=== PATIENT | female | born 1940 | race Caucasian/White ===

== ENCOUNTER 2019-01-29 13:02 | Inpatient (IN) | payer OTHER ==
[~2019-01-29] VITALS: Ht 172.7 cm; Wt 72.2 kg
--- NOTE | ~2019-01-29 | HC ---
[facility] [place] [address] CONSULTATION Name: KAYLIE COLEMAN KYLER Room #: 429-P [facility] IN M.R.#: [id number] Admission: 01/29/19 ������������������ Attend Phys: Maco Rush MD, FAAF Discharge: ������������������ Date of : 42 Report #: [id number] THIS REPORT FOR: //name// CC: Maco Rush DATE OF SERVICE: 02/01/2019 HISTORY OF PRESENT ILLNESS: The patient is a 78-year-old white female who has a history of Parkinson's disease, was a premorbid 4-wheeled walker ambulator and was noted to have abandoned her drugs secondary to side effects. Unfortunately, her function has significantly declined. She further worsened and came to the point where she was sitting in a chair and could not move. She has had increased weakness. She was having several falls beforehand. She was admitted to [facility]. She was seen by Neurology and she is now open to trying medication as she realized her function was markedly declining without. She has been started on low-dose Sinemet with a gradual increase and also has been placed on oxybutynin. We are seeing her in Rehabilitation Medicine consultation. PAST MEDICAL HISTORY: Includes diabetes mellitus type 2, ovarian cyst excision, hypertension, hypothyroid disease, right cataract surgery, gout. ALLERGIES: TO MORPHINE. MEDICATIONS: Please see the full medication listing. This includes vitamins, herbals, and supplements. SOCIAL HISTORY: Lives with her , was utilizing a 4-wheeled walker short distances 2-story house, 1 step to get in. helped with dressing, brief and shoes. FAMILY HISTORY: Noncontributory. REVIEW OF SYSTEMS: Did not offer any current complaints of chest pain, shortness of breath, abdominal discomfort. Denies problems with swallowing. No problems with focal extremity discomfort. No problems with bowel or bladder. She has the history of the recent falls. She notes some frustration with the situation. PHYSICAL EXAMINATION: GENERAL: She is a 78-year-old white female, in no obvious distress. The patient is alert. VITAL SIGNS: Last recorded temperature 97.6, pulse 61, respirations 19, blood pressure 162/70. HEENT: Appeared to be benign. She does have some evidence of masked facies. EXTREMITIES: Upper extremity, she does have a resting pill rolling tremor. [address] [address] CONSULTATION Name: KAYLIE COLEMAN KYLER Room #: [facility] IN .R.#: [id number] Admission: 01/29/19 ������������������ Attend Phys: Maco Rush MD, FAAF Discharge: ������������������ Date of : 42 Report #: [id number] There is evidence of some cogwheeling, elbows and wrists. She has evidence of some rigidity and bradykinesia. Lower extremities also reveal some bradykinesia. Upper body movement reveals decreased strength, probably a grade 3+/5, lower extremities 3+, maybe 4-. Transfers, supine to sit were max assist of 2. Moves very slowly. ASSESSMENT: A 78-year-old white female with the following problem list: 1. Parkinson's disease. 2. Significant decline in functional mobility and activities of daily living. 3. Frequent falls prior to even further significant decline. 4. Difficulty tolerating some of her Parkinson's medications. 5. Diabetes mellitus, type 2. 6. Electrolyte abnormalities. PLAN: The patient is a candidate for an acute in-hospital inpatient rehabilitation stay. Goal would be to further improve her functional mobility and ADL independence. We would have Neurology continue to follow regarding medication management while she is on the rehab monreal as well as her attending physician. Discussion with the patient's and son regarding rehabilitation issues. The patient is a candidate for an acute 5-North inpatient rehabilitation stay when medically cleared and a bed available. ��������������������������������������������� ���������������������������������������� By: ��������������������������������������������� 1257 0046 Feroz Dee MD /PMT
[~2019-01-29 13:02] MED LIST: ALLOPURINOL 30300 M2 PO; CATAPRES0.1 MG PO; DIABETA 5MG TABL5 MG; HAIR SKIN NAIL1 EACH PO; LEVOTHYROXINE0.05 MG PO; MAXZIDE-25 MG1 EACH PO; METFORMIN HCL500 MG PO; NORVASC10 MG PO
[2019-01-29 13:03] VITALS: BP 167/86
[2019-01-29 13:28] LABS: URINE BILIRUBIN NEGATIVE (Negative); URINE BLOOD 2+ (Negative); URINE CLARITY CLEAR; URINE COLOR YELLOW; URINE GLUCOSE-RANDOM* NEGATIVE (Negative); URINE KETONES 2+ (Negative); URINE LEUKOCYTES-REFLEX NEGATIVE (Negative); URINE NITRITE-REFLEX NEGATIVE (Negative); URINE PROTEIN (DIPSTICK) 2+ (Negative); URINE SPECIFIC GRAVITY >= 1.030 (1.005-1.035); URINE UROBILINOGEN 0.2 E.U./dl (0.2-1.0)
[2019-01-29 13:37] LABS: CRYSTALS None Seen /LPF (None Seen); MUCUS >6 Heavy strn/LPF (None Seen); SQUAMOUS 0-3 Few /LPF (0-3); URINE RBC 3-10 Few /HPF (0-2); URINE WBC-REFLEX 0-5 Rare /HPF (0-5)
[2019-01-29 13:38] LABS: BACTERIA-REFLEX None Seen /HPF (None Seen); HYALINE CASTS 0-3 Few /LPF (None Seen)
[2019-01-29 13:45] LABS: ABSOLUTE NEUTROPHILS 4.8 thou/uL (1.4-8.2); BASOPHILS 0.4 % (0.0-2.0); HEMATOCRIT 37.9 % (37.0-47.0); HEMOGLOBIN 12.6 gm/dL (12.0-15.0); LYMPHOCYTES 11.1 % (24.0-44.0); MCH 28.5 pg (26.0-34.0); MCHC 33.3 g/dL (28.0-37.0); MCV 85.6 fL (80.0-100.0); MONOCYTES 6.8 % (1.0-8.0); PLATELET COUNT 172 thou/uL (150-400); POLYS 81.7 % (36.0-66.0); RBC 4.42 mil/uL (4.20-5.00); RDW 13.3 % (10.5-14.5); WBC 5.8 thou/uL (4.0-11.0)
[2019-01-29 13:58] LABS: ANION GAP 9 mmol/L (7-16); BUN 17 mg/dL (7-18); CALCIUM 9.6 mg/dL (8.5-10.1); CHLORIDE 99 mmol/L (98-107); CO2 28 mmol/L (21-32); GLUCOSE 142 mg/dL (74-106); POTASSIUM 3.2 mmol/L (3.5-5.1); SODIUM 136 mmol/L (136-145)
[2019-01-29 14:07] LABS: ALBUMIN 3.5 g/dL (3.4-5.0); SGOT 20 U/L (15-37); SGPT 14 U/L (30-65); TOTAL BILIRUBIN 0.5 mg/dL (<0.1-1.0); TROPONIN-I <0.06 ng/mL (<0.06)
[2019-01-29] MEDS ORDERED: [UNRECOGNIZED DRUG - OTHER] (14:11)
[2019-01-29] MEDS ORDERED: METFORMIN HCL850 MG PO (15:18)
[2019-01-29] MEDS ORDERED: SYNTHROID50 MCG PO (15:20)
[2019-01-29] MEDS ORDERED: OXYBUTYNIN 5 MG5 M2 PO (15:21)
[2019-01-29] MEDS ORDERED: LASIX 20 MG TAB20 MG PO (15:22)
[2019-01-29] MEDS ORDERED: PLAVIX 75 MG TA75 M1 PO (15:23)
[2019-01-29] MEDS ORDERED: LOSARTAN POTAS100 MG PO (15:23)
[2019-01-29] MEDS ORDERED: ALENDRONATE SOD70 MG PO (15:24)
[2019-01-29] MEDS ORDERED: GABAPENTIN 100100 MG PO (15:24)
[2019-01-29] MEDS ORDERED: MUPIROCIN22 GM TOP (15:26)
[2019-01-29] MEDS ORDERED: CALCIUM 500+D1 EAC2 PO (15:27)
[2019-01-29 16:53] VITALS: BP 172/75
[2019-01-29 17:25] VITALS: BP 164/69
[2019-01-29 21:03] VITALS: BP 148/59
--- NOTE | 2019-01-30 04:27 | NUR ---
PT HERE AT START OF SHIFT.ADMISSION ASSESSMENT COMPLETED.DR LEONE CALLED TO CHECK ON PT,NEW ORDER NOTED TO RESTART PT'S MED,REPLACE MG AND POTASSIUM NOTED AND CARRIED OUT.PT REPOSITIONED WHILE IN BED.BLE EDEMA NOTED.PT RESTING IN BED AT THIS TIME.CALL LIGHT WITHIN REACH.
[2019-01-30 05:22] LABS: ABSOLUTE NEUTROPHILS 2.9 thou/uL (1.4-8.2); BASOPHILS 0.5 % (0.0-2.0); EOSINOPHILS 0.2 % (0.0-3.0); HEMATOCRIT 33.2 % (37.0-47.0); HEMOGLOBIN 11.3 gm/dL (12.0-15.0); LYMPHOCYTES 25.7 % (24.0-44.0); MCH 29.1 pg (26.0-34.0); MCV 85.8 fL (80.0-100.0); MONOCYTES 9.9 % (1.0-8.0); PLATELET COUNT 156 thou/uL (150-400); POLYS 63.7 % (36.0-66.0); RBC 3.87 mil/uL (4.20-5.00); RDW 13.1 % (10.5-14.5); WBC 4.6 thou/uL (4.0-11.0)
[2019-01-30 05:41] LABS: ALBUMIN 2.9 g/dL (3.4-5.0); CALCIUM 8.8 mg/dL (8.5-10.1); CREATININE 0.9 mg/dL (0.6-1.0); MAGNESIUM 1.7 mg/dL (1.8-2.4); POTASSIUM 3.6 mmol/L (3.5-5.1); TOTAL BILIRUBIN 0.3 mg/dL (<0.1-1.0); TOTAL PROTEIN 6.7 g/dL (6.4-8.2)
[2019-01-30 05:50] VITALS: BP 174/68
--- NOTE | 2019-01-30 13:40 | NUR ---
PT USING BEDPAN THIS NURSE AND ASSIST XS1 TRIED TO GET HER TO BSC. PT DOES NOT EVEN TRY. PATIENT HAS TO BE FEED AND USE BEDPAN. WILL HAVE THERAPY WORK WITH PATIENT.
--- NOTE | 2019-01-30 15:39 | H ---
[facility] [place] [address] HISTORY AND PHYSICAL Name: COLEMANGUEROKAYLIE KYLER Room #: 429-P ADM IN M.R.#: [id number] Admission: 01/29/19 ������������������ Attend Phys: Maco Rush MD, FAAF Discharge: ������������������ Date of : 42 Report #: [id number] THIS REPORT FOR: //name// CC: Maco Rush DATE OF SERVICE: 01/29/2019 CHIEF COMPLAINT: Weakness. HISTORY OF PRESENT ILLNESS: The patient is a 78-year-old white female well known to me as I have provided her primary medical care for many years. She has type 2 diabetes, hypertension and Parkinson's disease. She is not on a Parkinson's disease drug presently having tried several and abandoning them for side effects, just taking a supplement now that is based on claudio cohen extract. Blood sugars have been well controlled at home as has her blood pressure, but this week, she has developed progressive weakness and over the last few days, has been unable to help herself up out of a chair, has fallen several times. EMS has been to the house several times this week and day of this admission transported her to the Emergency Department for evaluation of her weakness. In the Emergency Department, labs were reasonably in order with the exceptions of mild hypokalemia at 3.2 potassium and hypomagnesemia with a magnesium level of 1.6. She is admitted to the hospital with generalized weakness and a Neurology consult is requested. PAST MEDICAL HISTORY: Ovarian cyst excision, benign; type 2 diabetes; hypertension; hypothyroid disease; right cataract surgery; gout; oral surgery for full dental extractions with dentures; Parkinson's disease. MEDICATIONS: Metformin 500 mg daily, levothyroxine 50 mcg 1 p.o. daily, oxybutynin 5 mg p.o. t.i.d., Lasix 20 mg p.o. daily, losartan 100 mg p.o. daily, Plavix 75 mg p.o. daily, gabapentin 100 mg 1 p.o. t.i.d., alendronate sodium 1 tab p.o. weekly, mupirocin and calcium with D 1 p.o. daily. ALLERGIES: TO MORPHINE. SOCIAL HISTORY: She is , lives at home with her . Nonsmoker, nondrinker. FAMILY HISTORY: Noncontributory. REVIEW OF SYSTEMS: GENERAL: She has been debilitated. EYES: Some exudate, right eye lately. ENT: Denies problems with hearing, swallow, taste or smell. CARDIOVASCULAR: No chest pain or palpitations. RESPIRATORY: No difficulty breathing. [address] [address] HISTORY AND PHYSICAL Name: KAYLIE COLEMAN KYLER Room #: 429-P [facility] IN M.R.#: [id number] Admission: 01/29/19 ������������������ Attend Phys: Maco Rush MD, FAAF Discharge: ������������������ Date of : 42 Report #: [id number] GASTROINTESTINAL: No abdominal pain. GENITOURINARY: No problems urinating. MUSCULOSKELETAL: She is debilitated, has arthritis and has bipedal edema, which is chronic. DERMATOLOGIC: No disturbing lesions or rash. NEUROLOGIC: Recent falls, debility, Parkinson's disease. PSYCHIATRIC: Frustrated, not depressed. Remainder of systems review is negative. PHYSICAL EXAMINATION: VITAL SIGNS: Temperature 36.9, pulse 80, respirations 12, blood pressure 167/86, pulse ox on room air is 96%. She weighs 74.84 kilograms or 165 pounds. HEENT: She is alert, responsive. Speaks full sentences and engages in conversation. Pupils are equal, round, reactive to light and accommodation. Extraocular muscles intact. She has some yellow exudate in her right eye. Oropharynx is clear. NECK: Supple. COR: S1, S2. CHEST: Clear. ABDOMEN: Soft, nontender. EXTREMITIES: Has 1+ nonpitting edema in her ankles. NEUROLOGIC: She has a mask-like face, some psychomotor slowing. Muscle strength 4/5 upper extremities, 2/5 lower. DERMATOLOGIC: No rashes or disturbing lesions. LABORATORY EVALUATION: CBC: White count is 5.8, hemoglobin 12.6, hematocrit 37.9, platelets 172,000. She has 82% segmented neutrophils, 11% lymphocytes, 7% monocytes. Serum chemistry: Sodium 136, potassium is 3.2, chloride 99, CO2 28, anion gap is 9, BUN 17, creatinine 1.0. Estimated glomerular filtration rate is 54, glucose 142. Lactate 1.6, calcium is 9.6, magnesium 1.6, total bilirubin 0.5, AST 20, ALT 14, alkaline phosphatase 77. Creatine kinase 51. Troponin less than 0.06. Total protein is 8.0, albumin 3.5. Influenza swabs A and B were negative. Urinalysis: Clean catch sample shows a yellow clear urine, specific gravity greater than 1.030, pH is 6.0, 2+ protein, 2+ ketones, 2+ blood noted, nitrite negative, negative bilirubin, urobilinogen 0.2, negative leukocyte esterase, 3-10 red cells per high powered field, 0-5 white cells per high powered field, 0-3 squamous epithelial cells, no crystals, bacteria, 0-3 casts, a heavy urinary mucus and negative glucose. Blood cultures obtained in the Emergency Department. CT scan of the head, noncontrast done from the ER shows no acute intracranial process. ASSESSMENT: Weakness, Parkinson's disease, type 2 diabetes, hypokalemia and hypomagnesemia. [facility] [address] [place] [address] HISTORY AND PHYSICAL Name: KAYLIE COLEMAN KYLER Room #: 429-P ADM IN M.R.#: [id number] Admission: 01/29/19 ������������������ Attend Phys: Maco Rush MD, FAAF Discharge: ������������������ Date of : 42 Report #: [id number] PLAN: Admit to hospital. Correct potassium and magnesium. Follow labs serially. Neurology consult may well likely benefit from anti-parkinsonian medications. ��������������������������������������������� <ELECTRONICALLY SIGNED> ���������������������������������������� By: Maco Rush MD, JERALD, FACEP ��������������������������������������������� 01/30/19 1539 1947 15 Maco Rush MD, JERALD, FACEP /nt
--- NOTE | 2019-01-30 16:13 | NUR ---
PT IN BED WORKED WITH PT/ OT THERAPY BUT THEY COULD NOT GET HER TO SIT ON SIDE OF BED. THIS NURSE TRYIED EARLIER TO GET PATIENT TO BSC BUT PATIENT DID NOT TRY.
[2019-01-30 16:17] VITALS: BP 165/62
[2019-01-30 20:14] VITALS: BP 180/67
[2019-01-30 21:50] VITALS: BP 183/71
[2019-01-31 00:40] VITALS: BP 154/75
[2019-01-31 06:10] LABS: CREATININE 0.8 mg/dL (0.6-1.0); MAGNESIUM 1.8 mg/dL (1.8-2.4); POTASSIUM 3.8 mmol/L (3.5-5.1)
--- NOTE | 2019-01-31 07:26 | NUR ---
Assumed care of pt at 1900. Pt alert and oriented x4. Q2h turn. Total care. Time consuming. Voided in the bed martel overnight. Takes meds whole in apple sauce. Blood pressure 180/67 and 183/71 at start of shift. [address] building construction professor notified and new orders noted. Fall precautions in place. Soft touch call within reach. Will continue to monitor.
--- NOTE | 2019-01-31 12:32 | HC ---
[facility] [place] [address] CONSULTATION Name: KAYLIE COLEMAN KYLER Room #: 429-P [facility] IN M.R.#: [id number] Admission: 01/29/19 ������������������ Attend Phys: Maco Rush MD, FAAF Discharge: ������������������ Date of : 42 Report #: [id number] THIS REPORT FOR: //name// CC: Maco Rush NEUROLOGY CONSULTATION HISTORY OF PRESENT ILLNESS: The patient is a 78-year-old female who states she has approximately 1-year history of Parkinson's disease. She has seen Dr. Mcmahon at [facility] who diagnosed her with Parkinson's disease. Apparently, she has tried Sinemet and pramipexole and perhaps one other medication, but had side effects from it, so she is now taking a claudio cohen supplement. Her son is in the room. He states that it seemed to provide some benefit, but now for the past 2 weeks, the patient has been very immobile. Apparently, EMS has come to her home several times this week to help her. Most recently, she has been sitting in her chair since Friday and could not move. She currently lives at home with her whom she described as elderly. The son states that he cannot help his mother with care. PAST MEDICAL HISTORY: Diabetes, hypertension, hypothyroidism, gout, Parkinson's disease. PAST SURGICAL HISTORY: Ovarian cyst excision, right cataract surgery, full dental extractions. MEDICATIONS AT HOME: Metformin 500 mg daily, levothyroxine 50 mcg daily, oxybutynin 5 mg t.i.d., Lasix 20 mg daily, losartan 100 mg daily, Plavix 75 mg daily, gabapentin 100 mg t.i.d., alendronate weekly, calcium with vitamin D daily. ALLERGIES: MORPHINE. PHYSICAL EXAMINATION: VITAL SIGNS: Temperature 36.6, pulse rate 65, respiratory rate 18, blood pressure 174/68, bedside pulse oximetry 93%. LABORATORY DATA: Hematology: White blood cell count 4.6, hemoglobin 11.3, hematocrit 33.2, MCV 85.8, platelet count 156,000. Urinalysis 2+ protein, 2+ ketones, 2+ blood, nitrite negative. Chemistry: Sodium 141, potassium 3.6, chloride 105, carbon dioxide 28, BUN 17, creatinine 0.9, GFR 61, glucose 131. IMAGING STUDIES: CT scan of the head is unremarkable. NEUROLOGIC EXAMINATION: Cranial nerves 2-12 are grossly intact. Motor exam demonstrates moderate cogwheel rigidity in the upper extremities. Reflexes are symmetrical throughout. Coordination demonstrates no [place] [address] CONSULTATION Name: KAYLIE COLEMAN KYLER Room #: 429-P [facility] IN ..#: [id number] Admission: 01/29/19 ������������������ Attend Phys: Maco Rush MD, FAAF Discharge: ������������������ Date of : 42 Report #: [id number] The patient has an intermittent mild supination, pronation tremor present in the right upper extremity. IMPRESSION AND PLAN: This patient has been diagnosed with Parkinson's disease. She is at the point now where she is willing to try anything because she realizes that without medication, she will not be able to return home. After reviewing her options, it was decided to begin a trial of low dose Sinemet 25/100 half tablet 3 times a day. We will see how she does with this small dose and then gradually try to increase it. I also explained that even with medication to improve her walking there is no medication to improve her balance. Secondly, she has diabetes and/or could possibly be a component of diabetic neuropathy, which will also compound her balance problems. I would also recommend getting the patient up in a chair to eat. She is going to need therapy and the therapy should be made easier if we can get her on some medication to control her symptoms better. I thank you for your kind referral of this patient. ��������������������������������������������� <ELECTRONICALLY SIGNED> ���������������������������������������� By: Nimco Arenas DO ��������������������������������������������� 01/31/19 1232 1141 0114 Nimco Arenas DO /nt
--- NOTE | 2019-01-31 13:15 | EKG ---
[place] [address] [facility] [place] [address] ELECTROCARDIOGRAM REPORT Name: KAYLIE COLEMAN Room #: 429-P ADM IN M.R.#: [id number] ������������������ Admission: 01/29/19 ������������������ Attend Phys: Maco Rush MD, FAAF Discharge: ������������������ Date of : 42 Report #: [id number] ����������������������������������������������������������������� [id number] THIS REPORT FOR: //name// [facility] ED Test Date: 2019-01-29 Test Time: 13:13:13 Pat Name: KAYLIE COLEMAN Department: Room: 429 Gender: F Rn Post Partum: [place] : 1940 Requested By: Janice Parker Order Number: [id number] MD: Emigdio Montoya Measurements Intervals [place] Rate: 78 P: 45 FL: 171 QRS: 0 QRSD: 101 T: 34 QT: 417 QTc: 476 Interpretive Statements Sinus rhythm Borderline T wave abnormalities Compared to ECG 10/02/2015 09:32:09 No significant changes Electronically Signed On 01-31-2019 13:15:14 CDT by Emigdio Montoya [email or web address] ��������������������������������������������� <ELECTRONICALLY SIGNED> ���������������������������������������� By: Emigdio Montoya MD, [facility] ��������������������������������������������� 01/31/19 1315 12 Emigdio Montoya MD, FAC /EPI
--- NOTE | 2019-01-31 17:44 | NUR ---
SET UP PATIENT'T TRAY ENCOURAGED TO FEED SELF PT HAS BEEN FED ALL MEALS ALSO ENCOURAGED TO HELP ROLL SIDE TO SIDE. PT IS USING BEDPAN AND BRIEFS DOES NOT WANT TO GET ON BSC. AT BEDSIDE IS CONFUSED AT TIMES. SON TO SPEAK WITH FLARE BREAKER TOMMOROW FOR PLACEMENT. DR LEONE HERE AND AGREE'S WITH THAT PLAN.
[2019-01-31 20:35] VITALS: BP 124/52
--- NOTE | 2019-01-31 22:21 | NUR ---
ASSESSMENT COMPLETED. PT IS ALERT AND ORIENTED. APPEARS VERY WEAK. HAS THE SOFT TOUCH CALL LIGHT. INCONTINENT OF BLADDER. SCDS IN PLACE.ON ROOM AIR WITH NO RESP DISTRESS.BP AT HS BETTER.PT DENIES PAIN. SWALLOWS MEDS OKAY WITH APPLESAUCE.WILL CONTINUE WITH POC TILL EOS.
[2019-02-01 04:05] VITALS: BP 144/60
[2019-02-01 08:03] VITALS: BP 162/70
--- NOTE | 2019-02-01 09:17 | NUR ---
ASSESMENT COMPLETED. VSS. A/O. DENIES PAIN BUT VERBALIZES DISCOMFORT ON LOWER LEGS. NO NOTED SOA. NO NV. PT RESTING IN BED. MEDS GIVEN ORDERED TOLERATED WELL. WILL CONT. TO MONITOR.
--- NOTE | 2019-02-01 14:02 | NUR ---
Nutrition: Pt admitted for weakness, seen for high nutrition risk. Pt and family state appetite is better, 50% intake at lunch and 75% at breakfast. States UBW is around current wt of 159 lbs. Requested finger foods for easier handling, will order. Hx of DMII, BG controlled between 103-146. Low nutrition risk.
[2019-02-01 16:08] VITALS: BP 141/52
--- NOTE | 2019-02-01 16:18 | NUR ---
ASSESSMENT-PT LIVES AT HOME WITH HER IN A 2 STORY HOUSE. PT SLLEPS IN A RECLINER ON THE MAIN LEVEL OF THE HOME. IS 3 YRS OLDER THAN HER, ABLE TO GET AROUND OK AND DRIVE SHORT DISTANCES BUT HE HAS SOME MEMORY ISSUES. THEY HAVE 2 SONS AND 2 DTRS. DTR POPPY WHO LIVES IN [place] IS DPOA AND SON LAYLA IBARRA IS INVOLVED. ANOTHER SON IN [place] AND DTR IN [facility] NOT INVOLVED. THEY HAVE A SCOTTIE DOG. THEY GET MEALS ON WHEELS. THEY HAVE A CLEANING LADY THAT COMES EVERY 2 WEEKS. SPOUSE DOES THE LAUNDRY. SHE TAKES A SPONGE BATH & ASSISTS HER WITH HER BACK. PT HAS 3 WALKERS (2 THAT ARE 2 WHELED AND ONE WITH A SEAT. PT HAS NOT HAD ANY HH SEVICES BUT HAS BEEN TO [facility] IN THE PAST FOR REHAB. S/W PT, AND SON LAYLA IBARRA IN ROOM THEN WITH LAYLA IBARRA OUTSIDE OF THE ROOM TO GATHER INFO. PT IS ALERT AND WANTS TO BE THE DECISION MAKER. SHE IS THANKFUL FOR HER KIDS HELP AND INVOLVEMENT BUT SHE DOES NOT WANT THEM MAKING THE DECISIONS. 5N CONSULT IN PROGRESS. ALSO GAVE LIST OF SKILLED FACILITIES & ASSISTED LIVING FACILITIES WELL. FOLLOWING TO ASSIST WITH DC PLANNING AND REHAB PLACEMENT.
[2019-02-01 19:34] VITALS: BP 127/55
[2019-02-02 04:38] VITALS: BP 186/62
[2019-02-02 07:04] VITALS: BP 151/82
[2019-02-02] MEDS ORDERED: MAG6464 MG PO (13:08)
[2019-02-02] MEDS ORDERED: CARBIDOPA-LEVO1 EAC9 PO (13:08)
--- NOTE | 2019-02-02 14:04 | NUR ---
Assessment completed.vss.Pt c/o headache.Tylenol po given early this am with relief.Pt has good appetite and tolerated meds.Dr Rush here and dc order noted. and son notified about dc to rehab at 1500.Report called to rn. Pt will be leaving at 1500 per wc.Pt in bed at present resting without c/o. Will continue to monitor.
--- NOTE | 2019-02-02 14:54 | NUR ---
PT'S AND SON LAYLA IBARRA NOTIFIED OF TRANSFER TO 5N TO ROOM [facility] THIS AFTERNOON. PT SAYS SHE WILL CALL HER DTR POPPY.
== END 2019-02-02 16:35 | DRG 57 ==
LOC: ER 13:02 → 4E 15:40 → EROBS 15:40 → 4E 17:25 → ENTRNSPT 02-02 15:56 → 4E 02-02 16:35
PROVIDERS: Physician Assistant; ADMIT Family Medicine
DX: G20 Parkinson's disease (principal); I10 Essential (primary) hypertension; E11.9 Type 2 diabetes mellitus without complications; E03.9 Hypothyroidism, unspecified; M10.9 Gout, unspecified; R29.6 Repeated falls; E87.6 Hypokalemia; E83.42 Hypomagnesemia; E87.8 Other disorders of electrolyte and fluid balance, not elsewhere classified; Z98.41 Cataract extraction status, right eye; Z79.02 Long term (current) use of antithrombotics/antiplatelets; Z79.84 Long term (current) use of oral hypoglycemic drugs; Z79.899 Other long term (current) drug therapy; Z88.5 Allergy status to narcotic agent; Z23 Encounter for immunization
CPT/HCPCS: 10084

== ENCOUNTER 2019-02-02 11:53 | Inpatient (IN) | payer OTHER ==
[~2019-02-02] VITALS: Ht 172.7 cm; Wt 69.4 kg
--- NOTE | ~2019-02-02 | HC ---
[facility] [place] [address] CONSULTATION Name: KAYLIE COLEMAN KYLER Room #: 506-1 ADM IN M.R.#: [id number] Admission: 02/02/19 ������������������ Attend Phys: Feroz Dee MD Discharge: ������������������ Date of : 42 Report #: [id number] THIS REPORT FOR: //name// CC: Feroz Rush DATE OF SERVICE: 02/04/2019 CHIEF COMPLAINT: Debility. HISTORY OF PRESENT ILLNESS: The patient is a 78-year-old white female well known to me. I have been her primary care doctor for many years. She was recently hospitalized immediately prior to this acute rehab admission at [facility] for debility, recent falls and hypokalemia and hypomagnesemia. She has well controlled type 2 diabetes and hypertension. She had been untreated for a period of time regarding her Parkinson's Disease and Neurology was consulted in this recent hospital stay and started on low dose Sinemet, which to date she is tolerating it fairly well and already showing hopeful signs of improvement with her parkinsonian. Clinical picture much improved tremor, more energy, more mobility. On 02/02/2019, she was transferred from the acute care hospital stay to her rehab stay for therapies, which she reports to me that they are going very well. PAST MEDICAL HISTORY: Ovarian cyst excision, benign, type 2 diabetes, hypertension, hypothyroidism, right cataract surgery, gout, oral surgery with full dental extractions with dentures and Parkinson's disease. MEDICATIONS: Metformin 500 mg daily p.o., levothyroxine 50 mcg p.o. daily, oxybutynin 5 mg p.o. t.i.d., Lasix 20 mg p.o. daily, losartan 100 mg p.o. daily, Plavix 75 mg p.o. daily, gabapentin 100 mg p.o. t.i.d., alendronate sodium 1 p.o. weekly, mupirocin topically to wounds and lesions as needed, calcium with D 1 p.o. daily, Sinemet 25/100 one p.o. t.i.d. ALLERGIES: MORPHINE. SOCIAL HISTORY: , lives at home with her . Nonsmoker, nondrinker. FAMILY HISTORY: Noncontributory. REVIEW OF SYSTEMS: GENERAL: She is debilitated. EYES: Recent exudate is cleared. ENT: No problems with hearing, swallow, taste or smell. CARDIOVASCULAR: No chest pain or palpitations. RESPIRATORY: No difficulty breathing. [facility] [address] [place] [address] CONSULTATION Name: KAYLIE COLEMAN KYLER Room #: 506-1 ADM IN M.R.#: [id number] Admission: 02/02/19 ������������������ Attend Phys: Feroz Dee MD Discharge: ������������������ Date of : 42 Report #: [id number] GASTROINTESTINAL: No abdominal pain. GENITOURINARY: No problems urinating while on oxybutynin. MUSCULOSKELETAL: Markedly debilitated with poor movement in all 4 extremities and difficulty with transfers. Bipedal edema which is improved. DERMATOLOGIC: No disturbing lesions or rash. NEUROLOGIC: Parkinson disease, recent falls, debility. PSYCHIATRIC: Frustrated, not depressed. Remainder of systems review is negative. PHYSICAL EXAMINATION: RECENT VITAL SIGNS: Temperature 36.9, pulse 80, respirations 12, blood pressure 165/85, pulse ox on room air 96% and in recent hospital stay she weighed 165 pounds, 74.84 kilograms. GENERAL: She is more alert and awake than when I most recently saw her. Speaks full sentences. Engaging in conversation. HEENT: Pupils equal, round, react to light and accommodation. Extraocular muscles intact. Pharynx is unremarkable. NECK: Supple. COR: S1, S2. CHEST: Clear. ABDOMEN: Soft, nontender. She has trace edema both ankles. NEUROLOGIC: More expression on her face. Some psychomotor slowing. Muscle strength 4/5 upper and 2/5 lower. DERM: No rash. ASSESSMENT: Debility, Parkinson's disease, type 2 diabetes, hypokalemia and hypomagnesemia. PLAN: Continue current medications. We will follow. Repeat labs soon. ��������������������������������������������� ���������������������������������������� By: ��������������������������������������������� 58 0427 Maco Rush MD, FAAFP, FACEP /nt
[~2019-02-02 11:53] MED LIST changes: +ALENDRONATE SOD70 MG PO; +CALCIUM 500+D1 EAC2 PO; +GABAPENTIN 100100 MG PO; +LASIX 20 MG TAB20 MG PO; +LOSARTAN POTAS100 MG PO; +METFORMIN HCL850 MG PO; +MUPIROCIN22 GM TOP; +OXYBUTYNIN 5 MG5 M2 PO; +PLAVIX 75 MG TA75 M1 PO; +SYNTHROID50 MCG PO; +[UNRECOGNIZED DRUG - OTHER]
[2019-02-02] MEDS ORDERED: MAG6464 MG PO (13:08)
[2019-02-02] MEDS ORDERED: CARBIDOPA-LEVO1 EAC9 PO (13:08)
[2019-02-02 16:30] VITALS: BP 184/73
--- NOTE | 2019-02-02 19:30 | NUR ---
PT ADMITED FROM 4E TO REHAB ROOM 506 AT 1630.PT IS HERE FOR MEDICAL COMPLEXITY WITH GENERAL DEBILITY WITH PARKINSON, DM. UP WITH MOD ASSIST GB 2X D/T WEAKNESS AND SLOW MOVEMENT. VS TAKEN B/P 184/73, HR 68. PT SAID IT MAY BE D/T HER ANXIETY. SAT 100% ON RA. DENIES SOB, N/V. PATIENT EDUCATED ON UNIT SPECIFIC PRECAUTIONS INCLUDING FALL PRECAUTIONS. DISCUSSED ABOUT REHAB SCHEDULE. FALL PRECAUTIONS IN PLACE. PATIENT VERBALLY AGREED TO FALL PRECAUTIONS. OFFERED SUPPORTIVE CARE. ENCOURAGED PT TO VOICE HER NEEDS. PT SAID SHE WAS HUNGRY AND WANTED TO EAT FIRST. PT SAID SHE HAD A GOOD DINNER, HAD GOOD APPETITE. NOT ABLE TO DONE ADMISSION ASSESSMENT. PHYSICIAN CONSULTS CALLED AND LEFT MESSAGE. FAXED MED LIST TO PHARMACY. HANDOFF TO NIGHT NURSE TO CONTINUE TO FOLLOW UP WITH MEDS AND ASSESSMENT.
[2019-02-02 21:19] VITALS: BP 146/70
--- NOTE | 2019-02-03 01:44 | NUR ---
PT ALERT AND ORIENTED X 4. INCONT OF URINE AT TIMES. USES BEDPAN. PT TOOK HS MEDS IN APPLESAUCE WITHOUT DIFFICULTY. C/O CRAMPING IN LEGS. STATED SCD'S HELPED WITH THAT. SCD'S PUT ON AT HS. BED ALARM ON FOR SAFETY. PT APPEARS TO BE SLEEPING ON HOURLY ROUNDS.
[2019-02-03 06:09] LABS: HEMOGLOBIN 12.1 gm/dL (12.0-15.0); MCH 28.6 pg (26.0-34.0); MCHC 33.5 g/dL (28.0-37.0); MCV 85.4 fL (80.0-100.0); RBC 4.21 mil/uL (4.20-5.00); RDW 13.5 % (10.5-14.5); WBC 7.1 thou/uL (4.0-11.0)
[2019-02-03 06:29] LABS: CALCIUM 9.2 mg/dL (8.5-10.1); CREATININE 0.9 mg/dL (0.6-1.0)
[2019-02-03 08:00] VITALS: BP 114/64
--- NOTE | 2019-02-03 12:01 | NUR ---
Nutrition: pt admit with parkinsons disease to rehab unit. Consult received, no reason stated. pt does report a few # weight loss from usual due to not eating 3 days prior to admit. PO has improved significantly over admit and pt is eating > 75% of meals, reporting good appetite. Has some difficulty with utensils and has requested more finger foods. Encouraged use of alternative menu as appropriate. Consider low nutrition risk
--- NOTE | 2019-02-03 13:22 | NUR ---
PT ALERT AND ORIENTED TIMES FOUR, VSS, 98%RA. PT DENIES PAIN/SOA. PT UP IN WC FOR MOST OF THE SHIFT. PT TOLERTATES MEDS AND MEALS. PT WORKED WELL WITH PT/OT. AT BEDSIDE. PT SLOWLY PROGRESSING TOWRADS POC GOALS.
--- NOTE | 2019-02-03 13:55 | NUR ---
cm tried visiting with pt x 2, intro to cm, team meeting and dcp. she was cont working with therapy and visiting. per chart pt lives with in 2 story house with steps. she does stay on main level and sleeps in recliner chair. has had skilled at [facility] in past. only drives short distance. has meals on wheel. has support from sons and daughters. there is cleaning lady who come q 2 weeks. will cont following as needed for dc needs.
[2019-02-03 19:40] VITALS: BP 141/60
--- NOTE | 2019-02-04 01:19 | NUR ---
TYLENOL OBTAINED FOR LEG PAIN THAT HAS BEEN BOTHERING HER FOR YEARS (ACCORDING TO PATIENT and HER ) REPOSTIONED AND TOLERATING SCDs. MEDS ONE AT A TIME WITH APPLESAUCE. PLEASANT
[2019-02-04 08:50] VITALS: BP 150/59
--- NOTE | 2019-02-04 15:46 | NUR ---
PATIENT IS ALERT AND ORIENTED X 3-4, UP IN WHEEL CHAIR FOR THERAPY. PATIENT AMBULATED TO BATHROOM BY STAFF WITH ASSIST OF ROLLER WALKER AND GAIT BELT. PATIENT IS EATING MEALS AND DRINKING FLUID WELL. LCTA, RESP EVEN AND UNLABORED, BS+X4, ABD SOFT NON-TENDER TO TOUCH. PRN TYLENOL GIVEN X 1 FOR [place] LEG PAIN RATED AT 6/10 WITH POSITIVE EFFECT. NO MORE CONCERN VOICED, WILL CONTINUE TO MONITORE
[2019-02-04 19:19] VITALS: BP 124/50
--- NOTE | 2019-02-05 03:13 | NUR ---
URGE INCONTINENT OF URINE 3 TIMES THIS SHIFT. IS AT BEDSIDE AND IS QUIETLY WATCHING TV WITH HER TONIGHT. SCDs AND TYLENOL HELP EASE PAIN. CONCERNED THAT SHE IS GETTING HER PARKINSON MEDS
[2019-02-05 10:04] VITALS: BP 108/59
--- NOTE | 2019-02-05 11:47 | NUR ---
cm spoke with son néstor manuel last night asked that i do not tell arline that we spoke about dc, son possible looking into [place] or [place] facility for his parents. cm left senior blue book in [facility] for son when he visit. pt was at nursing station asking about if ok to bring in there dog, bedside nurse following up on pet policy. will cont following as needed for dc needs.
--- NOTE | 2019-02-05 19:10 | NUR ---
AAA0X4. VERY PLEASANT AND COOPERTIVE. NO COMPLAINTS OF PAIN. ON ROOM AIR. UP WITH 1-2 WITH MAX ASSIST. EATS MEALS IN DININNG ROOM WITH GOOD APPETITE. WORKS WITH THERAPY AND MAKING GOOD PROGRESS. WEARS SCDS IN BED.
[2019-02-05 20:33] VITALS: BP 145/65
--- NOTE | 2019-02-06 03:23 | NUR ---
Assumed care of pt at 1915. Pt alert and oriented x4, calm and cooperative. Denies pain, nausea or dypsnea. Repositioned q 2 hrs. Meds taken whole in applesauce without difficulty. sleeping at bedside. Ambulated to bathroom with assist of one using gait belt and walker, shuffling gait. Has appeared to be sleeping when checked on hourly rounds. Fall precautions in place.
[2019-02-06 08:10] VITALS: BP 133/73
--- NOTE | 2019-02-06 12:17 | NUR ---
ASSUMED CARES AT 0700. PT AWAKE, ALERT AND ORIENTED*4. DENIES PAIN. C/O OF FEELING "DRUNK" WHICH SHE STATED STARTED WHEN THE SINEMET WAS INCREASED. VITALS REMAINED STABLE. UP WITH 1 PERSON MIN ASSIST, DIFFICULT STANDING AND TAKING FIRST STEPS, SHUFFLING GAIT. CONTINUES TO HAVE SOME REDNESS/ GREYNESS AROUND HER SACRAL REGION, CREAM APPLIED NEEDED. REPOSITIONED Q2H. Q1H VISUAL CHECKS. CALL LIGHT WITHIN REACH. FALL PRECAUTIONS IN PLACE
[2019-02-06 19:30] VITALS: BP 157/59
--- NOTE | 2019-02-07 02:14 | NUR ---
assumed care at approx 1900 evening 02/06. pt lying in bed with head of bed elevated resting and visiting with visitor at change of shift. pt alert and oriented x4, appropriate and cooperative. pt took hs meds with applesauce tolerating well. pt appears to be sleeping soundly with hourly rounding checks. bed alarm on and call light in reach. will continue to monitor.
--- NOTE | 2019-02-07 10:52 | NUR ---
PATIENT CARE WAS ASSUMED AT 0715.PATIENT IS ALERT AND ORIENTED X4.PATIENT HAS A FLAT AFFECT.PATIENT IS A 1-2 ASSIST.PATIENT HAS SOME STRESS INCONTIENCE.BRIEF IS IN PLACE.PATIENT'S WAS WASHED UP AND LINENS WERE CHANGE.PATIENT WAS PLACED IN A W/C AND TAKEN OUT TO DINNER ROOM FRO BREAKFAST.PATIENT HAS NO COMPLAINS OF PAIN AT THIS TIME.CALL LIGHT, PHONE, AND PERSONAL BELONGINGS ARE WITHIN REACH.
[2019-02-07 16:09] VITALS: BP 194/78
[2019-02-07 16:23] VITALS: BP 194/78
[2019-02-07 19:41] VITALS: BP 178/81
--- NOTE | 2019-02-08 05:35 | NUR ---
PT LYING IN BED. VOIDING PER BEDPAN WITH SOME INCONTINENCE. TYLENOL PROVIDING PAIN RELIEF. RESTING COMFORTABLY. NO NEEDS VOICED. CALL LIGHT WITHIN REACH. EILL CONTINUE TO PROVIDE FREQUENT OBSERVATION.
[2019-02-08 05:44] LABS: ABSOLUTE NEUTROPHILS 3.8 thou/uL (1.4-8.2); BASOPHILS 0.9 % (0.0-2.0); EOSINOPHILS 3.3 % (0.0-3.0); HEMATOCRIT 33.1 % (37.0-47.0); HEMOGLOBIN 11.2 gm/dL (12.0-15.0); LYMPHOCYTES 31.4 % (24.0-44.0); MCH 29.2 pg (26.0-34.0); MCHC 33.8 g/dL (28.0-37.0); MCV 86.3 fL (80.0-100.0); MONOCYTES 8.4 % (1.0-8.0); PLATELET COUNT 258 thou/uL (150-400); RBC 3.83 mil/uL (4.20-5.00); RDW 13.5 % (10.5-14.5); WBC 6.7 thou/uL (4.0-11.0)
[2019-02-08 05:59] LABS: CALCIUM 8.8 mg/dL (8.5-10.1); CREATININE 0.9 mg/dL (0.6-1.0); TOTAL BILIRUBIN 0.4 mg/dL (<0.1-1.0); TOTAL PROTEIN 6.8 g/dL (6.4-8.2)
[2019-02-08 07:30] VITALS: BP 128/77
--- NOTE | 2019-02-08 14:16 | NUR ---
ASSUMED CARES AT 0700. REPORTS SLEPT GOOD, APPETITE GOOD. DENIES PAIN, SOB, N/V. PT AWAKE, ALERT AND ORIENTED X4. DENIES PAIN. B/P WAS HIGH LAST NIGHT, MAY NEED PRN HYPERTENSIVE AT HS. VITALS REMAINED STABLE THIS AM 128/77, HR68. BS MONITOR, MEDS GIVEN WITH APPLE SAUCE, CONTINUE TO BE ON CARBIDOPA FOR PARKINSON, MILD TREMOR NOTED. REPORTS IT HELPS. UP WITH 1 PERSON MIN ASSIST, DIFFICULT STANDING AND TAKING FIRST STEPS, SHUFFLING GAIT. CONTINUES TO HAVE SOME REDNESS/ GREYNESS AROUND HER SACRAL REGION, CREAM APPLIED NEEDED. REPOSITIONED Q2H. PT HAS BEEN UP FOR THERAPY, AND BATHROOM. UP TO DINNING ROOM FOR GROUPS NOW. REASSESSMENT PER CHART. PT HAD BM YESTERDAY, DENIES NEEDS FOR MIRALAX THIS AM. HER GOALS ARE TO CONTINUE TO WORK WITH THERAPY TO GET STRONGER. IS SUPPORTIVE AND BE WITH PT DURING MEALS TIME. Q1H VISUAL CHECKS. CALL LIGHT WITHIN REACH. FALL PRECAUTIONS IN PLACE. WILL CONTINUE TO MONITOR.
[2019-02-08 19:37] VITALS: BP 109/58
--- NOTE | 2019-02-09 03:29 | NUR ---
MEDS WITH YOGURT, TURNED Q2H, UP TO BSC WITH ASSIST OF ONE FOR SIGNIFICANT VOID. BED ALARM, RESTING. TYLENOL FOR CHRONIC LEG PAIN
[2019-02-09 07:50] VITALS: BP 172/88
--- NOTE | 2019-02-09 12:30 | NUR ---
ASSUMED CARES AT 0700. HAS BEEN UP FOR THERAPY AND UP TO BATHROOM 4X SINCE THIS AM. REPORTS THAT SHE WAS UP FROM 1-3AM. BUT SLEPT GOOD AFTER THAT, APPETITE GOOD. DENIES PAIN, SOB, N/V. PT AWAKE, ALERT AND ORIENTED X4. B/P 172/88 HR 67. LOSARTAN GIVEN SCHEDULE. WILL CONTINUE TO MONITOR B/P. MEDS GIVEN WITH APPLE SAUCE, CONTINUE TO BE ON CARBIDOPA FOR PARKINSON, MILD TREMOR NOTED. REPORTS IT HELPS. UP WITH 1 PERSON MIN ASSIST, DIFFICULT STANDING AND TAKING FIRST STEPS, SHUFFLING GAIT. CONTINUES TO HAVE SOME REDNESS/ GREYNESS AROUND HER SACRAL REGION, CREAM APPLIED NEEDED. REPOSITIONED Q2H. REASSESSMENT PER CHART. LAST BM WAS 2 DAYS AGO. MIRALAX GIVEN SCHEDULE. CHECKS FREQUENTLY FOR NEEDS AND SAFETY. CALL LIGHT WITHIN REACH. FALL PRECAUTIONS IN PLACE. WILL CONTINUE TO MONITOR.
--- NOTE | 2019-02-09 13:41 | NUR ---
team meeting, recommendation: [facility] vs [facility] (pt,ot,st,nursing,bath aid and sw). wheel chair, less 50ft with out wheel chair.
[2019-02-09 15:47] VITALS: BP 137/68
[2019-02-09 19:22] VITALS: BP 159/68
--- NOTE | 2019-02-10 03:45 | NUR ---
assumed care at approx 1900 evening 02/09. pt lying in bed with head of bed elevated at change of shift. visiting at bedside. pt alert and oriented x4, appropriate and cooperative. pt stated she had a busy day with therapy. pt took hs meds with applesauce tolerating well. pt appears to be sleeping soundly with hourly rounding checks. bed alarm on and call light in reach. will continue to monitor.
[2019-02-10 08:00] VITALS: BP 172/77
--- NOTE | 2019-02-10 11:46 | NUR ---
Nutrition: pt seen per followup. No new weight since 02/02 to assess. Continues to eat well, 75-100% of meals. Reports improvement with dexterity and using utenstils to eat. Low nutrition risk.
--- NOTE | 2019-02-10 14:50 | NUR ---
Patient participated in community reintegration on 02/10/19 with Physical Therapy. Refer to documentation by PT.
--- NOTE | 2019-02-10 18:16 | NUR ---
ASSUMED CARES AT 0700. PT AWAKE, ALERT AND ORIENTED*4. DENIES PAIN. VITALS REMAINED STABLE. REDNESS AROUND THE SACRAL REGION REMAINS, PT REPOSITIONED Q2H. PT CONTINUES TO HAVE A SHUFFLING GAIT WITH AMBULATION. SHE CALLED FOR ALL HER MEDS ON TIME PER ST. PT UP WITH 1 PERSON MIN ASSIST, GAITBELT WALKER AND TOLERATED WELL. Q1H VISUAL CHECKS. CALL LIGHT WITHIN REACH. FALL PRECAUTIONS IN PLACE
[2019-02-10 19:59] VITALS: BP 136/51
--- NOTE | 2019-02-11 01:47 | NUR ---
PT VERY FORGETFUL, EARLY 89 WAS ALREADY CALLING FOR HER BEDTIME MEDS AND CONTINUE TO ASK FOR IT UNTIL SHE GOT IT, TURNED/REPOSTIONED EVERY 2 HOURS, TOOK MEDS WITH APPLESAUCE, NO COUGHING NOTED, STILL WITH TREMORS,CONTINENT OF B/B, ASSISTED TO BEDSIDE COMMODE, HOURLY ROUNDING, MONITORED,
[2019-02-11 07:46] VITALS: BP 187/95
--- NOTE | 2019-02-11 14:54 | NUR ---
FAXED REFERRAL TO [facility] SPOKE WITH HELDER IN ADM. SHE RECEIVED REFERRAL AND WILL REVIEW. ANTICIPATE DC 02/18. DCP TO FOLLOW.
[2019-02-11 16:01] VITALS: BP 134/57
--- NOTE | 2019-02-11 16:01 | NUR ---
PT ALERT AND ORIENTED TIMES FOUR. BP ELEVATED THIS MORNING BEFORE SCHEDULED BP MEDICATIONS BP NOW 134/57 OTHER VSS. PT DENIES PAIN/SOA. PT TOLERATES MEDS AND MEALS. PT WORKED WELL WITH PT/OT THIS SHIFT. PT AND SON AT BEDSIDE. PT PROHRESSING CASE POC GOALS.
[2019-02-11 20:32] VITALS: BP 161/67
--- NOTE | 2019-02-12 04:30 | NUR ---
ASSESSMENT: PT REMAIN ALERT AND ORIENT TIMES THREE. UP WITH 2 PERSONS. USED BEDPAN AND WANTED TO KEEP BRIEFS ON. TOLERATING PO INTAKE WITH APPLE SAUCE. VSS, AFEBRILE. SLOW PROGRESS, WILL CONTINUE TO MONITOR.
[2019-02-12 09:02] VITALS: BP 109/69
--- NOTE | 2019-02-12 10:16 | NUR ---
[place] REF[place] [facility] [place] [facility] [place]. DC [place]. DCP TO FOLLOW.
--- NOTE | 2019-02-12 16:22 | NUR ---
ASSUMED CARES AT 0700. PT AWAKE, ALERT AND ORIENTED *4. DENIES PAIN. VITALS REMAINED STABLE. PT CALLED APPROPRIATELY AND ONTIME FOR ALL HER MEDICATIONS PER ST. CONTINUES TO HAVE MILD BLE EDEMA, EXTREMITIES ELEVATED WHEN IN BED. PT CONTINUES TO HAVE SHUFFLED GAIT AND DIFFICULT MAKING FIRST STEP. UP WITH 1-2 MIN ASSIST TRANSFERS. POSITIONING Q2H. Q1H VISUAL CHECKS. CALL LIGHT WITHIN REACH. FALL PRECAUTIONS IN PLACE
[2019-02-12 19:50] VITALS: BP 145/69
--- NOTE | 2019-02-13 04:26 | NUR ---
ASSESSMENT: PT WAS ASSISTED TO THE BSC WITH GB AND TWO ASSIST. NO BM. UO ADEQUATE. VSS, AFEBRILE. WILL CONTINUE TO MONITOR.
[2019-02-13 08:24] VITALS: BP 144/72
--- NOTE | 2019-02-13 11:52 | NUR ---
ASSUMED CARES AT 0700. PT AWAKE, ALERT AND ORIENTED*4. C/O HEADACHE THIS AM, TYLENOL ADMINISTERED AND PT STATED THAT SHE FELT BETTER AFTER A WHILE. VITALS REMAIN STABLE. SKIN REMAINS INTACT. PT CONTINUES TO HAVE A SHUFFLING GAIT WHEN WALKING. UP WITH 1 PERSON MIN ASSIST, GAITBELT AND WALKER. AMBULATED LONG DISTANCE WITH STAFF AND TOLERATED WELL. Q1H VISUAL CHECKS. REPOSITION Q2H. FALL PRECAUTIONS IN PLACE. CALL LIGHT WITHIN REACH
[2019-02-13 19:30] VITALS: BP 143/66
--- NOTE | 2019-02-14 05:35 | NUR ---
ASKED FOR OWN MEDS AND IDENTIFIED THEM LATE HS. INCONTINENT URINE TIMES 2 THIS SHIFT. PLEASANT AND SLEEPING WELL TONIGHT
--- NOTE | 2019-02-14 09:25 | NUR ---
ASSUMED CARE OF PT AT 0715. PT IS A&OX4. IS ON ROOM AIR. IS STABLE. DENIES PAIN. IS UP WITH 1 ASSIST, GB, W TO BSC. FALL PRECAUTIONS & HOURLY ROUNDING CONTINUED THIS SHIFT. LABS & VITALS REVIEWED. WILL CONTINUE TO MONITOR. PT IS TO ASK FOR MEDICATIONS WHEN DUE.
[2019-02-14 21:08] VITALS: BP 149/75
--- NOTE | 2019-02-15 02:41 | NUR ---
ASSUMED CARE AT APPROX 1900 EVENING 02/14. PT LYING IN BED WITH HEAD OF BED ELEVATED AT CHANGE OF SHIFT. ASSISTED PT UP TO BSC TO VOID BEFORE FALLLING ASLEEP. PT GIVEN MEDS WITH PUDDING TOLERATING WELL. PT APPEARS TO BE SLEEPING SOUNDLY WITH HOURLY ROUNDING CHECKS. BED ALARM ON AND CALL LIGHT IN REACH. WILL CONTINUE TO MONITOR.
[2019-02-15 09:45] VITALS: BP 141/85
--- NOTE | 2019-02-15 12:30 | NUR ---
[facility] facility out to visit with yajaira and her today at bedside. l[facility] requested updated med list, h&P, and therapy note. no complaints from yajaira and will cont following as needed for dc needs.
--- NOTE | 2019-02-15 16:17 | NUR ---
ASSUMED CARES AT 0700. PT AWAKE, ALERT AND ORIENTED*4. DENIES PAIN. VITALS REMAINED STABLE. PT CONTINUES TO HAVE A SHUFFLING GAIT WITH AMBULATION. UP WITH 1 PERSON MIN ASSIST, AMBULATED LONG DISTANCE WITH THERAPY AND TOLERATED WELL. Q1H VISUAL CHECKS. CALL LIGHT WITHIN REACH. FALL PRECAUTIONS IN PLACE
[2019-02-15 19:32] VITALS: BP 127/63
--- NOTE | 2019-02-16 02:58 | NUR ---
ASSUMED CARE AT APPROX 1900 EVENING 02/15. PT SITTING UP IN W/C AT CHANGE OF SHIFT RESTING AND WATCHING TV. PT ALERT AND ORIENTED X4 STATING SHE IS TIRED AND WANTING TO GO TO BED. PT ASSISTED WITH GOWN CHANGE AND INTO BED. PT TOOK HS MEDS WITH PUDDING TOLERATING WELL. PT APPEARS TO BE SLEEPING SOUNDLY WITH HOURLY ROUNDING CHECKS. BED ALARM ON AND CALL LIGHT IN REACH. WILL CONTINUE TO MONITOR.
[2019-02-16 08:00] VITALS: BP 132/77
--- NOTE | 2019-02-16 11:20 | NUR ---
ASSUMED CARE AT 0700. PATIENT IS ALERT AND ORIENTED X4. PATIENT HAS SEVERE TREMORS R/T PARKINSONS DISEASE. LUNGS ARE CLEAR AND DEMINSIHED. ABD IS SOFT WITH BSX4. UP WITH ASSIST OF 1 STAFF TO BATHROOM. UP IN W/C FOR BREAKFAST. VOIDING [place] COLORD URINE. FALL AND SAFETY PROTOCOLS IN PLACE. DENIES ANY PAIN AT THIS TIME. WILL CONTINUE TO MONITER.
--- NOTE | 2019-02-16 12:32 | NUR ---
[facility] coming for eval today. team meeting, recommendation : 1st choice [facility] vs home with private duty 19/05 initial supervision and wean back as needed. dc 02/18 [facility] ( pt, ot, st, nursing, bath aid). has [facility] already
--- NOTE | 2019-02-16 16:41 | NUR ---
SPOKE WITH JASKARAN FROM [facility] HE VISITED PT. AT THE BEDSIDE TODAY AND WILL LOOK INTO RESPIT STAY AND WILL SPEAK WITH FAMILY. [facility] WILL [facility]ISIT WITH PT AND /SON REGARDING RESPIT STAY TODAY. DCP TO FOLLOW.
[2019-02-16 20:18] VITALS: BP 174/62
--- NOTE | 2019-02-17 05:30 | NUR ---
ASSESSMENT: PT REMAIN ALERT AND ORIENT TIMES THREE. UP WITH ONE ASSISTANCE, GB AND WALKER TO BSC. WILL CONTINUE TO MONITOR. VSS, AFEBRILE. SLOW PROGRESS, WILL CONTINUE TO MONITOR.
[2019-02-17 07:30] VITALS: BP 170/92
--- NOTE | 2019-02-17 07:48 | NUR ---
ASSUMED CARE AT 0700. PATIENT IS ALERT AND ORIENTED X4. PATIENT CONTINUES TO HAVE TREMORS. SINGLETARY'S, FILER HELPER ARE EQUAL. LUNGS ARE CLEAR. ABD IS SOFT WITH BSX4. FALL AND SAFETY PROTOCOLS IN PLACE. C/O JOSEPH. PATIENT MEDICATED WITH PRN PAIN MED. CONTINUES TO PROGRESS SLOWLY TOWARDS D/C GOALS. WILL CONTINUE TO MONITER.
--- NOTE | 2019-02-17 08:30 | NUR ---
cm received phone call from verna at [facility] " called tried to talk with and need to call arline. we will be able to accept for AL if pt and family/dog agree."/verna. cm passed on number to pt room [id number].
--- NOTE | 2019-02-17 13:06 | NUR ---
Nutrition: pt seen per followup. Continues to eat well 75-100% of meals without complaints. No new weight. Planned discharge 02/18.
--- NOTE | 2019-02-17 15:14 | NUR ---
Patient participated in community reintegration on 02/17/19 with PHYSICAL THERAPY. Refer to documentation by KARY PHYSICAL THERAPIST.
[2019-02-17 19:10] VITALS: BP 143/68
--- NOTE | 2019-02-18 01:59 | NUR ---
PT ALERT AND ORIENTED X 4. UP TO BSC WITH ASSIST X 1-2. VOIDING ADEQUATE AMTS YELLOW URINE. PT HAD TO BE REMINDED ABOUT HS MEDICATIONS. WAS ABLE TO NAME ALL OF HER HS MEDS. PT DENIES PAIN OR DISCOMFORT. BED ALARM ON FOR SAFETY. PT APPEARS TO BE SLEEPING ON HOURLY ROUNDS.
--- NOTE | 2019-02-18 07:55 | NUR ---
bedside nurse stated that pt wanted cm to set up private duty. cm visited with pt and néstor at bedside, re-education that pt or family needs to set up private duty rt finances and if the company they pick needs records that could be provided. education on rise and tuck in programs that many of private duty companies have. " ok thanks, will check into them"/arline. cont on education on safety in home, ie no rugs on floor rt increased risk for falls and having private duty to help support both arline and néstor. will cont following as needed for dc needs. dc today with [facility]. néstor to transport home. information passed on to team.
[2019-02-18 08:08] VITALS: BP 162/71
[2019-02-18 08:12] VITALS: BP 162/71
--- NOTE | 2019-02-18 10:04 | NUR ---
ASSUMED CARES AT 0700. PT AWAKE, ALERT AND ORIENTED*4. DENIES PAIN BUT C/O DISCOMFORT AND TIGHTNESS AROUND HER ANKLES, EXTREMITIES REPOSITIONED WITH A PILLOW AND PT STATED THAT IT HELPED. VITALS REMAIN STABLE. PT UP WITH 1 PERSON MIN ASSIST, CONTINUES TO HAVE A SHUFFLING GAIT, GAITBELT AND WALKER AND TOLERATED WELL. PT TO DISCHARGE TODAY WITH HH, PT TEACHING TO BE COMPLETED WITH PT AND SPOUSE. PT DID NOT WANT TO TAKE MIRALAX THIS AM, WANTS TO TAKE IT WHEN SHE GOES HOME. Q1H VISUAL CHECKS. CALL LIGHT WITHIN REACH. FALL PRECAUTIONS IN PLACE.
--- NOTE | 2019-02-18 12:36 | NUR ---
PT. DISCHARGING TODAY TO HOME WITH [facility] NOTIFIED ARMAAN IN ADM. OF [place] AND SHE WILL NOTIFY PT. TIME OF VISITS.
--- NOTE | 2019-02-19 13:20 | H ---
[facility] [place] [address] HISTORY AND PHYSICAL Name: KAYLIE COLEMAN KYLER Room #: 506-1 [facility] IN M.R.#: [id number] Admission: 02/02/19 ������������������ Attend Phys: Feroz Dee MD Discharge: 02/18/19 ������������������ Date of : 44 Report #: [id number] THIS REPORT FOR: //name// CC: Feroz Rush DATE OF SERVICE: 02/02/2019 HISTORY OF PRESENT ILLNESS: The patient is a 78-year-old white female who has a history of Parkinson's disease, was a premorbid 4-wheeled walker ambulator and had abandoned her Parkinson drugs secondary to side effects. Unfortunately, her function significantly declined. She worsened and came to the point where she was sitting in a chair and could not move. She was admitted with markedly increased weakness. She was having increased falls. She was seen by Neurology, was open to trying some medication as she realized her function was markedly declining without. She was started on low dose Sinemet with a gradual increase and also placed on oxybutynin. Her function started to improve and she has now been admitted for acute in-hospital inpatient rehabilitation. PAST MEDICAL HISTORY: Includes diabetes mellitus type 2, ovarian cyst excision, hypertension, hypothyroid disease, right cataract surgery, gout. ALLERGIES: MORPHINE. MEDICATIONS: Please see the full medication listing. This includes vitamins, herbals, and supplements. SOCIAL HISTORY: Lives with her , was utilizing a 4-wheeled walker short distances, two deuce house, one step to get in. helped with dressing, briefs and shoes. FAMILY HISTORY: Noncontributory. REVIEW OF SYSTEMS: No complaints of chest pain, shortness of breath, abdominal discomfort. Denied issues swallowing. No headache, fever or chills. No bowel or bladder changes. Complains of stiffness of her upper and lower extremities, decreased functional mobility. She has some frustration with her current condition. She has the history of the recent falls. PHYSICAL EXAMINATION: GENERAL: This is a 78-year-old white female in no obvious distress. VITAL SIGNS: Last recorded temperature 97.7, pulse 71, respirations 20, blood pressure 146/70. HEENT: Appeared to be benign. She has some evidence of masked facies. CHEST: Sounded clear to auscultation. CARDIOVASCULAR: Regular rate and rhythm. [facility] [address] [place] [address] HISTORY AND PHYSICAL Name: KAYLIE COLEMAN KYLER Room #: 506-1 [facility] IN M.R.#: [id number] Admission: 02/02/19 ������������������ Attend Phys: Feroz Dee MD Discharge: 02/18/19 ������������������ Date of : 44 Report #: [id number] ABDOMEN: Bowel sounds positive, nontender. GENITOURINARY AND RECTAL: Deferred. She does have the evidence of masked facies. NEUROLOGIC: Upper extremities, she has a resting pill rolling tremor. There is some evidence of cogwheeling elbows and wrists. She does have definite rigidity, bradykinesia. Lower extremities revealed bradykinesia. Upper body movement Reveals decreased strength grade 3+/5 lower extremities 3+ to 4-/5. Transfers are improving now mod assist. IMPRESSION: This is a 78-year-old black female with the following problems: 1. Parkinson's disease. 2. Significant decline in functional mobility and ADLs. 3. Frequent falls. 4. Difficulty tolerating some of her Parkinson's medications. 5. Diabetes mellitus type 2. 6. Electrolyte abnormalities. PLAN: The patient has been admitted for acute in-hospital inpatient rehabilitation. From a postadmission physician evaluation perspective, there are no relevant changes since the preadmission screening. Please see the review of prior and current medical and functional conditions and comorbidities. Please see the patient's previous and current functional status. As far as risk of complications, the patient has multiple medical comorbidities as noted above. Initial plan of care involves the interdisciplinary acute inpatient rehabilitation program with goal of maximizing the patient's functional independence, so that she can hopefully return back to her prior living situation. Prognosis is reasonably good with estimated length of stay probably at least 10 days to 2 weeks and potentially longer if needed. Potential barriers would include her multiple medical comorbidities and decreased functional status. The patient meets diagnostic criteria for an acute in-hospital inpatient rehabilitation stay. She meets the medical necessity criteria and we will have the merchandising consultant physicians follow. We have asked Neurology to continue to follow regarding medication management for her Parkinson's. She does have the tolerance for therapies and has appropriate discharge goals back to the home setting. ��������������������������������������������� <ELECTRONICALLY SIGNED> ���������������������������������������� By: Feroz Dee MD ��������������������������������������������� 02/19/19 1320 [id number] [id number] Feroz Dee MD /nt
--- NOTE | 2019-02-19 13:20 | PLAN ---
[facility] [place] [address] REHAB UNIT PLAN OF CARE Name: KAYLIE COLEMAN Room #: 506-1 DIS IN M.R.#: [id number] Admission: 02/02/19 ������������������ Attend Phys: Feroz Dee MD Discharge: 02/18/19 ������������������ Date of : 44 Report #: [id number] THIS REPORT FOR: //name// CC: Feroz Rush DATE OF SERVICE: 02/05/2019 PROGRESS NOTE AND OVERALL PLAN OF CARE SUBJECTIVE: The patient was seen back today in followup. She was in no distress. Last recorded temperature 97.5, pulse 71, respirations 18, blood pressure 124/50. No calf swelling. She is working in therapies with transfers max assist, occasional mod assist. Bed to chair is mod assist. Once up, she was able to ambulate 6 feet mod assist with a front-wheeled walker. In occupational therapy, lower body dressing is dependent. Speech therapy is working with her as well with moderate cognitive deficits. ASSESSMENT: 1. Parkinson's disease. 2. Significant functional mobility and ADL deficits. 3. Frequent falls. 4. Difficulty tolerating some of her Parkinson's medications. 5. Diabetes mellitus type 2. 6. Electrolyte abnormalities. PLAN: The overall plan of care is based on the preadmission screen, post-admission physician evaluation and information garnered from therapy assessments. 1. Estimated length of stay is probably at least 10 days to 2 weeks. 2. Medical prognosis is reasonably good. 3. Anticipated interventions includes the interdisciplinary acute inpatient rehabilitation program with PT, OT and speech, rehabilitation nursing assisting regarding medication management, skin care prophylaxis, bowel and bladder issues and nursing education. 4. Anticipated functional outcomes would be for the patient to hopefully improve to the point where she can be up moving around without walker again to try to get her back home. 5. Discharge destination is back home with her . Goal is to be modified independent with mobility and ADLs as well as improvement in cognition. 6. Expected therapy by discipline includes PT, OT and speech 1 hour per day [address] [address] REHAB UNIT PLAN OF CARE Name: KAYLIE COLEMAN Room #: 506-1 [facility] IN M.R.#: [id number] Admission: 02/02/19 ������������������ Attend Phys: Feroz Dee MD Discharge: 02/18/19 ������������������ Date of : 44 Report #: [id number] each 5 days a week throughout the duration of the acute inpatient rehabilitation stay. ��������������������������������������������� <ELECTRONICALLY SIGNED> ���������������������������������������� By: Feroz Dee MD ��������������������������������������������� 02/19/19 1320 [id number] Feroz Dee MD /[facility]
== END 2019-02-18 13:50 | disposition home health service (06) | DRG 57 ==
LOC: ENTRNSPT 02-18 13:40 → EDTRNSPTSTS 02-18 13:43
PROVIDERS: Internal Medicine; Nurse Practitioner Family; ADMIT Physical Medicine & Rehabilitation
DX: G20 Parkinson's disease (principal); E11.9 Type 2 diabetes mellitus without complications; E87.8 Other disorders of electrolyte and fluid balance, not elsewhere classified; R29.6 Repeated falls; I10 Essential (primary) hypertension; E03.9 Hypothyroidism, unspecified; M10.9 Gout, unspecified; E87.6 Hypokalemia; E83.42 Hypomagnesemia; Z98.41 Cataract extraction status, right eye; Z79.899 Other long term (current) drug therapy; Z79.84 Long term (current) use of oral hypoglycemic drugs; Z88.6 Allergy status to analgesic agent; Z98.42 Cataract extraction status, left eye
CPT/HCPCS: 10112

== ENCOUNTER 2019-12-02 11:34 | Emergency (ER) | payer OTHER ==
[~2019-12-02] VITALS: Ht 172.7 cm; Wt 75.3 kg
--- NOTE | ~2019-12-02 | EKG ---
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
[~2019-12-02 11:34] MED LIST changes: +CARBIDOPA-LEVO1 EAC9 PO; +MAG6464 MG PO
[2019-12-02 12:17] LABS: ABSOLUTE NEUTROPHILS 4.9 thou/uL (1.4-8.2); BASOPHILS 0.9 % (0.0-2.0); EOSINOPHILS 1.1 % (0.0-3.0); HEMATOCRIT 39.3 % (37.0-47.0); HEMOGLOBIN 12.7 gm/dL (12.0-15.0); LYMPHOCYTES 20.2 % (24.0-44.0); MCH 28.8 pg (26.0-34.0); MCHC 32.3 g/dL (28.0-37.0); MCV 89.1 fL (80.0-100.0); MONOCYTES 5.6 % (1.0-8.0); PLATELET COUNT 237 thou/uL (150-400); POLYS 72.2 % (36.0-66.0); RBC 4.41 mil/uL (4.20-5.00); RDW 13.5 % (10.5-14.5); WBC 6.7 thou/uL (4.0-11.0)
[2019-12-02 12:21] LABS: URINE BILIRUBIN NEGATIVE (Negative); URINE BLOOD NEGATIVE (Negative); URINE CLARITY CLEAR; URINE COLOR YELLOW; URINE GLUCOSE-RANDOM* NEGATIVE (Negative); URINE KETONES NEGATIVE (Negative); URINE LEUKOCYTES-REFLEX TRACE (Negative); URINE NITRITE-REFLEX NEGATIVE (Negative); URINE PROTEIN (DIPSTICK) NEGATIVE (Negative); URINE SPECIFIC GRAVITY 1.015 (1.005-1.035); URINE UROBILINOGEN 0.2 E.U./dl (0.2-1.0)
[2019-12-02 12:23] LABS: ANION GAP 7 mmol/L (7-16); BUN 22 mg/dL (7-18); CALCIUM 9.6 mg/dL (8.5-10.1); CHLORIDE 102 mmol/L (98-107); CO2 33 mmol/L (21-32); CREATININE 1.1 mg/dL (0.6-1.0); GLUCOSE 107 mg/dL (74-106); POTASSIUM 3.5 mmol/L (3.5-5.1); SODIUM 142 mmol/L (136-145)
[2019-12-02 12:32] LABS: SGOT 15 U/L (15-37); SGPT 19 U/L (30-65); TOTAL BILIRUBIN 0.5 mg/dL (<0.1-1.0); TOTAL PROTEIN 8.8 g/dL (6.4-8.2); TROPONIN-I <0.06 ng/mL (<0.06)
[2019-12-02 14:04] VITALS: BP 164/74
--- NOTE | 2019-12-02 14:18 | NUR ---
cm notified by ed that pt son had question about dcp, not safe to stay home with out who assist pt rt her parkinson. cm provided resources of hh list, private duty ie [place] and [facility]. senior blue book. education on family splitting shift at parents home if cant afford private duty. "mom been to [place] in past for knee but nothing in last year."/néstor-son. son ok to have [facility], [facility] and rehab hosp op eval for acute rehab. dad is one who helps mom and know that is he confused they cant stay alone at home. pt ot eval in ed.
== END 2019-12-02 19:27 | disposition home or self-care (01) ==
LOC: ER 11:34
PROVIDERS: Physician Assistant
DX: G20 Parkinson's disease (principal); R53.1 Weakness; R05 Cough; I10 Essential (primary) hypertension; E11.9 Type 2 diabetes mellitus without complications; E03.9 Hypothyroidism, unspecified; M10.9 Gout, unspecified; Z88.6 Allergy status to analgesic agent